=== PATIENT | female | born 1980 | race Caucasian/White ===

== ENCOUNTER 2019-09-12 13:33 | Emergency (ER) | payer OTHER ==
[~2019-09-12] VITALS: Ht 165.1 cm; Wt 59.0 kg
[~2019-09-12 13:33] MED LIST: BENTYL20 MG PO; CELEXA20 MG PO; MOTRIN800 MG PO; TYLENOL325 MG PO
[2019-09-12] MEDS ORDERED: CYCLOBENZAPRINE10 MG PO (16:08)
== END 2019-09-12 17:05 | disposition home or self-care (01) ==
LOC: ED 13:33
DX: M54.5 Low back pain (principal); F17.200 Nicotine dependence, unspecified, uncomplicated; Z88.5 Allergy status to narcotic agent; Z91.030 Bee allergy status
CPT/HCPCS: 72100; 80053; 85025; 85651; 86140; 99283-25; 99406; A9270

== ENCOUNTER 2019-12-20 12:43 | Emergency (ER) | payer OTHER ==
[~2019-12-20] VITALS: Ht 165.1 cm; Wt 59.0 kg
[~2019-12-20 12:43] MED LIST changes: +CYCLOBENZAPRINE10 MG PO
== END 2019-12-20 13:05 | disposition home or self-care (01) ==
LOC: ED 12:43
DX: K08.89 Other specified disorders of teeth and supporting structures (principal)